=== PATIENT | female | born 1985 | race African-American/Black ===

== ENCOUNTER 2023-02-28 13:05 | Emergency (ER) | payer OTHER ==
[2023-02-28] MEDS ORDERED: FLUORESCEIN STRIPS 1 MG STRIP LEFT EYE ONE (14:10)
[2023-02-28] MEDS ORDERED: CIPROFLOXACIN 0.3% OPHTH SOLN 5 ML BTL LEFT EYE STA (15:02)
--- NOTE | 2023-02-28 15:15 | ED ---
General Adult HPI - General Chief complaint: Eye Problems Stated complaint: Eye problem Time Seen by Provider: 02/28/23 13:19 Source: patient, RN notes reviewed Mode of arrival: ambulatory Limitations: no limitations - History of Present Illness Initial comments: 37-year-old female presents emergency department for chief complaint of left eye redness and tearing. Patient states that it started on following wearing her contacts. She admits that she has been wearing her contacts too long. She has not worn her contacts since then. She states that the eye is nonpainful, not itchy, she reports no changes in her vision. Denies fever, chills, cough, congestion. - Related Data Allergies Allergy/AdvReac Type Severity Reaction Status Date / Time No Known Allergies Allergy Verified 02/28/23 13:13 Review of Systems ROS Statement: Those systems with pertinent positive or pertinent negative responses have been documented in the HPI. ROS Other: All systems not noted in ROS Statement are negative. Past Medical History Past Medical History: No Reported History History of Any Multi-Drug Resistant Organisms: None Reported Past Surgical History: Section Past Psychological History: No Psychological Hx Reported Smoking Status: Never smoker Past Alcohol Use History: None Reported Past Drug Use History: None Reported General Exam Limitations: no limitations General appearance: alert, in no apparent distress Head exam: Present: atraumatic, normocephalic, normal inspection Eye exam: Present: PERRL, EOMI (Nonpainful EOMs), conjunctival injection (Left eye), periorbital swelling (Mild swelling under the left eye), other (Fluorescein staining was performed which showed no evidence for corneal abrasion, normal-appearing cornea). Absent: scleral icterus, nystagmus, periorbital tenderness ENT exam: Present: normal exam, mucous membranes moist Neck exam: Present: normal inspection. Absent: tenderness, meningismus, lymphadenopathy Respiratory exam: Present: normal lung sounds bilaterally. Absent: respiratory distress, wheezes, rales, rhonchi, stridor Cardiovascular Exam: Present: regular rate, normal rhythm, normal heart sounds. Absent: systolic murmur, diastolic murmur, rubs, gallop, clicks Extremities exam: Present: normal inspection, full ROM, normal capillary refill. Absent: tenderness, pedal edema, joint swelling, calf tenderness Back exam: Present: normal inspection Neurological exam: Present: alert, oriented X3 Psychiatric exam: Present: normal affect, normal mood Skin exam: Present: warm, dry, intact, normal color. Absent: rash Course Vital Signs 02/28/23 02/28/23 02/28/23 13:11 15:05 16:00 Temperature 97.6 F 98.6 F Pulse Rate 71 75 76 Respiratory 18 14 Rate Blood Pressure 170/114 153/103 146/92 O2 Sat by Pulse 99 99 Oximetry Medical Decision Making - Medical Decision Making Was pt. sent in by a medical professional or institution ([facility], [employer], urgent care, hospital, or halfway...) When possible be specific @ -No Did you speak to anyone other than the patient for history (EMS, parent, family, police, friend...)? What history was obtained from this source @ -No Did you review nursing and triage notes (agree or disagree)? Why? @ -I reviewed and agree with nursing and triage notes Were old charts reviewed (outside hosp., previous admission, EMS record, old EKG, old radiological studies, urgent care reports/EKG's, halfway records)? Report findings @ -No old charts were reviewed Differential Diagnosis (chest pain, altered mental status, abdominal pain women, abdominal pain men, vaginal bleeding, weakness, fever, dyspnea, syncope, hea dache, dizziness, GI bleed, back pain, seizure, CVA, palpatations, mental health, musculoskeletal)? @ -Conjunctivitis, iritis, corneal abrasion, foreign body, preseptal cellulitis , acute angle-closure glaucoma, this list is not all-inclusive EKG interpreted by me (3pts min.). @ -None X-rays interpreted by me (1pt min.). @ -None done CT interpreted by me (1pt min.). @ -None done U/S interpreted by me (1pt. min.). @ -None done What testing was considered but not performed or refused? (CT, X-rays, U/S, labs)? Why? @ -None What meds were considered but not given or refused? Why? @ -None Did you discuss the management of the patient with other professionals (professionals i.e. [facility], VEHICLE [employer]ST ENGINEER, lab, RT, psych nurse, social worker psychiatric, associate producer, teacher, correctional probation officer, family preservation caseworker)? Give summary @ -No Was smoking cessation discussed for >3mins.? @ -No Was critical care preformed (if so, how long)? @ -No Were there social determinants of health that impacted care today? How? (Homelessness, low income, unemployed, alcoholism, drug addiction, transportation, low edu. Level, literacy, decrease access to med. care, intermediate, rehab)? @ -No Was there de-escalation of care discussed even if they declined (Discuss DNR or withdrawal of care, Hospice)? DNR status @ -No What co-morbidities impacted this encounter? (DM, HTN, Smoking, COPD, CAD, Cancer, CVA, ARF, Chemo, Hep., AIDS, mental health diagnosis, sleep apnea, morbid obesity)? @ -None Was patient admitted / discharged? Hospital course, mention meds given and route, prescriptions, significant lab abnormalities, going to OR and other pertinent info. @ -Discharged. Patient is presenting to the emergency department with a nonpainful red left eye 3 days following use of an old contact lens. She states that the eye is nonpainful, she has no pain with EOMs, visual acuity is 20/30 in bilateral eyes with no deficit. Fluorescein staining and Hendrix lamp examination was performed which showed no corneal abrasion. With patient's history of contact lens use and conjunctival injection patient was given Cipro ophthalmic solution. Patient also has elevated blood pressure while in the emergency department today which she states has been ongoing since the of her last child. She was advised to follow up with her primary care for this. Patient advised on return precautions including change in vision, painful eye. Patient discharged in stable condition. Case discussed with my attending, Dr. Sahu Undiagnosed new problem with uncertain prognosis? @ -No Drug Therapy requiring intensive monitoring for toxicity (Heparin, Nitro, Insulin, Cardizem)? @ -No Were any procedures done? @ -No Diagnosis/symptom? @ -Conjunctivitis Acute, or Chronic, or Acute on Chronic? @ -Acute Uncomplicated (without systemic symptoms) or Complicated (systemic symptoms)? @ -Uncomplicated Side effects of treatment? @ -No Exacerbation, Progression, or Severe Exacerbation? @ -No Poses a threat to life or bodily function? How? (Chest pain, [place], [place], pneumonia, PE, COPD, DKA, ARF, appy, cholecystitis, CVA, Diverticulitis, Homicidal, Suicidal, threat to staff... and all critical care pts) @ -No Disposition Clinical Impression: Conjunctivitis Disposition: HOME SELF-CARE Condition: Stable Instructions (If sedation given, give patient instructions): Conjunctivitis (ED) Additional Instructions: Abstain from wearing your contact lens until resolution of symptoms. Instill 1-2 drops in the left eye every two hours while awake for 2 days then 1-2 drops four times daily for 4 days. Please follow with your primary care provider when you return home. Return to the emergency department for new or worsening symptoms. Is patient prescribed a controlled substance at d/c from ED?: No Referrals: None,Stated [Primary Care Provider] - 1-2 days Time of Disposition: 15:11
[2023-02-28 16:01] VITALS: BP 146/92; PULSE 76; RESP 14; TEMP 98.6
== END 2023-02-28 16:01 | disposition home or self-care (01) ==
LOC: EC 13:05
DX: H10.9 Unspecified conjunctivitis (principal)
CPT/HCPCS: 99283